=== PATIENT | female | born 1940 | race Caucasian/White ===

== ENCOUNTER 2017-01-27 14:18 | Emergency (ER) | payer MEDICARE | END 2017-01-27 20:05 | disposition short-term general hospital (02) | LOC: ER 14:18 | DX: N39.0 Urinary tract infection, site not specified (principal); E86.0 Dehydration; K58.9 Irritable bowel syndrome, unspecified; I48.91 Unspecified atrial fibrillation; I50.9 Heart failure, unspecified; I10 Essential (primary) hypertension; E11.9 Type 2 diabetes mellitus without complications; E78.5 Hyperlipidemia, unspecified; K21.9 Gastro-esophageal reflux disease without esophagitis; Z79.899 Other long term (current) drug therapy; Z79.4 Long term (current) use of insulin; Z88.8 Allergy status to other drugs, medicaments and biological substances | CPT/HCPCS: 36415; 96361; 96365; 96375; J0696 ==

== ENCOUNTER 2017-04-14 10:01 | Emergency (ER) | payer MEDICARE | END 2017-04-14 11:03 | disposition home or self-care (01) | LOC: ER 10:01 | DX: S06.359A Traumatic hemorrhage of left cerebrum with loss of consciousness of unspecified duration, initial encounter (principal); K21.9 Gastro-esophageal reflux disease without esophagitis; E11.9 Type 2 diabetes mellitus without complications; I10 Essential (primary) hypertension; Z86.73 Personal history of transient ischemic attack (TIA), and cerebral infarction without residual deficits; Z79.4 Long term (current) use of insulin; Z79.899 Other long term (current) drug therapy; Z88.6 Allergy status to analgesic agent; W17.89XA Other fall from one level to another, initial encounter | CPT/HCPCS: 36415; 51702; 96374; C9132 ==